=== PATIENT | male | born 1980 | race Caucasian/White ===

== ENCOUNTER 2023-02-17 07:04 | Emergency (ER) | payer SELFPAY ==
[~2023-02-17] VITALS: Ht 188 cm; Wt 82.8 kg
[2023-02-17 07:05] VITALS: BP 124/72; PULSE 116; TEMP 97.7; O2SAT 93
[2023-02-17 07:13] VITALS: RESP 16
== END 2023-02-17 07:31 | disposition left against medical advice (07) ==
LOC: ER 07:05
DX: E11.65 Type 2 diabetes mellitus with hyperglycemia (principal)
CPT/HCPCS: 99281